=== PATIENT | female | born 1965 | race Caucasian/White ===

== ENCOUNTER → 2016-06-21 | Outpatient (CLI) | payer BC ==
[~2016-06-21] MED LIST: ASPCH81X PO; ENOX80IN SQ; FERR1TAB23 PO; FERR50TA3 PO; MEDR5TAB PO; RIVA1TAB4 PO; WARF5TAB90 PO
[2016-06-21 19:28] LABS: HEMATOCRIT 24.5 % (37-47); MEAN CORPUSCULAR HEMOGLOBIN 24.8 pg (25-34); MEAN CORPUSCULAR HGB CONC 31.4 g/dl (32-36); MEAN PLATELET VOLUME 9.5 fL (7.4-10.4); PLATELET COUNT 333 K/uL (130-400); WHITE BLOOD COUNT 7.95 K/uL (4.8-10.8)
== END | disposition home or self-care (01) ==
LOC: C.LAB 19:08
PROVIDERS: ATTEND Internal Medicine Geriatric Medicine
DX: N92.0 Excessive and frequent menstruation with regular cycle (principal)

== ENCOUNTER 2016-06-22 12:14 | Emergency (ER) | payer BC ==
[~2016-06-22] VITALS: Ht 165.1 cm; Wt 76.0 kg
[2016-06-22 12:17] VITALS: TEMP 37; Ht 165.1 cm; Wt 76.0 kg
[2016-06-22 13:16] LABS: BASO % 0.9 %; EOS % 0.5 %; IG% 0.3 %; LYMPH % 18.8 %; LYMPH ABS # 2.06 K/uL (1.2-3.4); MEAN CELL VOLUME 77.9 fL (80-100); MEAN CORPUSCULAR HEMOGLOBIN 24.6 pg (25-34); MEAN CORPUSCULAR HGB CONC 31.6 g/dl (32-36); MEAN PLATELET VOLUME 9.9 fL (7.4-10.4); MONO % 4.8 %; NEUT % 74.7 %; PLATELET COUNT 402 K/uL (130-400); RED BLOOD COUNT 3.21 M/uL (4.2-5.4); WHITE BLOOD COUNT 10.96 K/uL (4.8-10.8)
[2016-06-22 13:23] LABS: BUN/CREATININE RATIO 13.2 (10-20); CALCIUM 8.5 mg/dl (8.5-10.1); CREATININE 0.69 mg/dl (0.60-1.20); POTASSIUM 3.5 mmol/L (3.5-5.1)
[2016-06-22 13:25] LABS: ALB/GLOB RATIO 1.1 (0.9-2)
[2016-06-22 13:33] LABS: INR 1.1 (0.9-1.1); PROTHROMBIN TIME (PATIENT) 12.2 SECONDS (9.0-12.0)
[2016-06-22 13:36] LABS: MANUAL MICROSCOPIC REQUIRED? YES; URINE APPEARANCE CLOUDY (CLEAR); URINE BILIRUBIN NEG (NEG); URINE COLOR RED; URINE NITRITE NEG (NEG); URINE SPECIFIC GRAVITY 1.025 (1.000-1.030); UROBILINOGEN NEG (NEG)
[2016-06-22 13:37] LABS: REVIEW REQ? NO
[2016-06-22 13:39] LABS: COMPLETE YES; MICROCYTOSIS PRESENT
[2016-06-22 13:40] LABS: PREG INTERNAL NEGATIVE QC NEG CLEAR BACKGROUND; PREG INTERNAL POSITIVE QC POS CONTROL LINE
[2016-06-22 13:46] LABS: URINE RBC >30 /hpf (0-4)
[2016-06-22 13:47] LABS: URINE BACTERIA NEG (NEG); URINE MUCUS PRESENT (NONE PRSENT)
[2016-06-22 13:48] LABS: ZZUR CULT IF INDIC CLEAN CATCH YES
[2016-06-22] MEDS ORDERED: RIVA1TAB4 PO (14:53)
[2016-06-22] MEDS ORDERED: FERR50TA3 PO (14:53)
[2016-06-22] MEDS ORDERED: ENOX80IN SQ (15:49)
[2016-06-22] MEDS ORDERED: WARF5TAB90 PO (15:49)
--- NOTE | 2016-06-22 16:03 | GYNECOLOGICAL CONSULTATION ---
DATE OF CONSULTATION: 06/22/2016 DATE OF CONSULTATION: 06/22/2016. REQUESTING PROVIDER: [facility]. INDICATION: Vaginal bleeding on anticoagulation. HISTORY OF PRESENT ILLNESS: The patient is a 50-year-old 2, para 2, currently bleeding who presents to the Emergency Room for evaluation of vaginal bleeding. The patient has a complicated past gynecological and medical history. The patient relates a history of menorrhagia for several years with anemia. The patient states that she had a low hemoglobin, which was treated with p.o. iron. A culinary internship in the [place] area took the patient to the operating room in February timeframe and did a D\T\C. The patient states that she had polyps removed. After her D\T\C she states her bleeding had improved and she was able to get her hemoglobin up to 11. The patient the unfortunately had an ankle fracture which needed to be surgically repaired. Postoperatively she developed a DVT. The patient was then anticoagulated starting with an injection of Lovenox and then was seen as an outpatient yesterday in Dr. Olguin's office and was started on p.o. Xarelto. With the p.o. Xarelto she began to bleed heavily. Last night in Dr. Olguin's office she had a hemoglobin of 7.7. The patient states that she was seen this morning in her culinary internship's office in [place] who told that there was nothing she could do. The patient then presented to the Emergency Room here at [facility] for evaluation. Interestingly, the patient states that she had some type of DVT during her 20 years ago and was anticoagulated at that time. The patient states that she had some kind of hypercoagulable workup at the time of her and that the workup was negative. She does not believe that was ever repeated. PAST MEDICAL HISTORY: OBSTETRICAL: x2. 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 PHYSICAL EXAMINATION: GENERAL: Today shows a pleasant female in no acute distress. VITAL SIGNS: Her blood pressure 125/65 and a pulse of 94. ABDOMEN: Soft, nontender with no palpable masses. No rebound, no guarding, no organomegaly. Positive bowel sounds. PELVIC EXAMINATION: Shows normal external genitalia. Vaginal vault is pink and rugated. There is minimal bleeding in the posterior fornix. The cervix is multiparous and closed. Bimanual examination shows a 12-week size globular uterus. The adnexa show no palpable masses. RECTAL EXAMINATION: Confirmatory. EXTREMITY EXAMINATION: Shows a surgically healing left ankle fracture. LABORATORY DATA: Laboratory values show an H\T\H of 7.9 and 25.0. IMPRESSION: A 50-year-old 2, para 2 anticoagulated for DVT, history of menorrhagia with acute bleeding and anemia. PLAN: The patient is not actively bleeding now. She states that her bleeding becomes heavier when she takes the p.o. Xarelto. Clearly the p.o. Xarelto is exacerbating her underlying history of menorrhagia. I suspect the patient is tolerant of her anemia because she has been battling this prior to the anticoagulation. The patient is not a good surgical candidate at this time with the anticoagulation. Our hormone of choice to stop the bleeding acutely would be IV Premarin, but considering her DVT history I believe that is contraindicated. I do believe that the patient's bleeding could be controlled initially with a titrating dose of oral progesterone. This could be done over a 3-week period and would pretty much stop her bleeding. After completing that 3-week trial the patient could then have a Mirena IUD placed at least temporarily until her anticoagulation is completed. At this time, I would hope that the patient could come off the Xarelto and be transitioned to Coumadin where her PT and INR could be followed and her Coumadin dose could then be adjusted. I have discussed with Mr. Scott these recommendations. The BOWLING TEACHER followup can be done as an outpatient. As far as transitioning her anticoagulation from Xarelto to another anticoagulant, I will leave it up to him and the patient's PCP to decide the best way for that to occur. Should the patient need to be admitted for this anticoagulation change we will continue to follow along as an inpatient, otherwise the patient will follow up in my office for an IUD placement in 3 weeks.
[2016-06-22 16:21] VITALS: BP 115/68; PULSE 77; O2SAT 98
--- NOTE | 2016-06-22 21:13 | EMERGENCY ROOM VISIT NOTE ---
History First contact with patient: 13:49 Chief Complaint: ED VAG BLEEDING Stated Complaint: EXCESSIVE BLEEDING History of Present Illness The patient is a 50 year old female who presents to the Emergency Room with complaints of heavy vaginal bleeding since starting Xarelto on 06/14/16 because of a left lower extremity DVT. The patient reports undergoing same foot surgery on 05/28/16. The patient also reports that she has had uterine problems as well with prior history of polyps. Her last D&C was performed in February. The patient reports that her previous bleeding has significantly decreased. The patient reports that her heaviest bleeding is approximately one half hour after taking her Xarelto. The patient reports that the bleeding tapers down throughout the day until she takes the pill again 12 hours later, and goes through this continuous cycle. She reports that the bleeding is affecting her activities of daily living. She was seen yesterday by her family doctor who ordered some lab work, showing a hemoglobin of 7.7. She called her [employer] DEVELOPER in [place], and they told her that they would not do any type of surgical intervention with a hemoglobin level. It was suggested that he seek further emergency department evaluation for possible admission and blood transfusions. The patient denies any pain. She also denies any chest pain, shortness of breath, palpitations, headache, nausea or vomiting. She denies any significant pelvic pain. The patient denies any prior history of blood transfusions. She has been on Lovenox in the past. Review of Systems HEENT: Denies dizziness, visual problems, hearing loss, tinnitus. Denies difficulty swallowing or oral lesions. PULMONARY: Denies cough, shortness of breath, sputum production or hemoptysis. CARDIOVASCULAR: Denies chest pain, palpitations, dyspnea on exertion, orthopnea or peripheral edema. GASTROINTESTINAL: Denies diarrhea, constipation, nausea, vomiting, or abdominal pain. GENITOURINARY: Denies dysuria, frequency, urgency or nocturia. NEUROLOGIC: Denies history of epilepsy, CVA, TIA or chronic headaches. MUSCULOSKELETAL: Denies history of joint tenderness/swelling. SKIN: Denies rashes or lesions. PSYCHIATRIC: Denies history of depression or mental illness. ENDOCRINE: Denies history of diabetes or thyroid disorders. Past Medical/Surgical History Medical Problems: (1) Deep vein thrombosis (DVT) of left lower extremity Surgical Problems: (1) History of appendectomy (2) History of dilation and curettage (3) S/P foot surgery, left Family History FH: cancer FH: diabetes mellitus FH: gallbladder disease FH: heart disease FH: kidney disease Social History Smoking Status: Never Smoker Alcohol Use: occasionally Marital Status: Occupation Status: employed Current/Historical Medications Scheduled Enoxaparin (Lovenox), 76 MG SQ Q12H Ferrous Sulfate (Iron (Ferrous Sulfate)), 65 MG PO DAILY Rivaroxaban (Xarelto), 15 MG PO BID Warfarin Sodium (Coumadin), 5 MG PO DAILY Allergies Coded Allergies: Latex1 -Allergic Contact Dermititis (Unverified Allergy, Unknown, IRRITATION, , 06/22/16) Prochlorperazine (Unverified Allergy, Unknown, GOOFY, 20 YEARS AGO , ) Physical Exam Vital Signs Date Time Temp Pulse Resp B/P Pulse Ox O2 Delivery O2 Flow Rate FiO2 06/22/16 16:21 77 18 115/68 98 Room Air 06/22/16 14:40 94 17 117/70 99 Room Air 06/22/16 12:55 100 Room Air 06/22/16 12:17 37.0 94 18 125/65 100 Room Air Physical Exam CONSTITUTIONAL: Healthy and well nourished. Alert and oriented X 3 with positive affect. Patient does not appear in any acute distress. HEENT: Normocephalic, atraumatic. Pupils equal, round and reactive. NECK: Full active range of motion without discomfort. RESPIRATORY: Clear to auscultation bilaterally with no wheezing, crackles, rhonchi or stridor. CARDIOVASCULAR: Regular rate and rhythm with no murmurs, rubs or gallops. GASTROINTESTINAL: Bowel sounds present in all quadrants. Abdomen is soft and nontender to palpation. GENITOURINARY: Pelvic exam was performed with a female nurse high risk ob present. Normal external genitalia. Speculum exam shows dark blood within the vaginal vault. This was removed with 3 cotton swabs. The patient does have mild oozing from the cervical os. No other soft tissue noted within the cervical os. MUSCULOSKELETAL: Full range of motion of all joints without discomfort. INTEGUMENTARY: No rash or other significant dermatologic conditions noted. NEUROLOGIC: No focal neurologic deficits noted. Medical Decision & Procedures Laboratory Results 06/22/16 12:51 Red Blood Count 3.21, Mean Corpuscular Volume 77.9, Mean Corpuscular Hemoglobin 24.6, Mean Corpuscular Hemoglobin Concent 31.6, Mean Platelet Volume 9.9, Neutrophils (%) (Auto) 74.7, Lymphocytes (%) (Auto) 18.8, Monocytes (%) (Auto) 4.8, Eosinophils (%) (Auto) 0.5, Basophils (%) (Auto) 0.9, Neutrophils # (Auto) 8.18, Lymphocytes # (Auto) 2.06, Monocytes # (Auto) 0.53, Eosinophils # (Auto) 0.06, Basophils # (Auto) 0.10 06/22/16 12:51 Test 06/22/16 00:00 06/22/16 12:51 Urine Color RED Urine Appearance CLOUDY (CLEAR) Urine pH 6.0 (4.5-7.5) Urine Specific [place] 1.025 (1.000-1.030) Urine Protein 2+ (NEG) Urine Glucose (UA) NEG (NEG) Urine Ketones TRACE (NEG) Urine Occult Blood 3+ (NEG) Urine Nitrite NEG (NEG) Urine Bilirubin NEG (NEG) Urine Urobilinogen NEG (NEG) Urine Leukocyte Esterase NEG (NEG) Urine RBC >30 /hpf (0-4) Urine WBC 10-30 /hpf (0-5) Urine Epithelial Cells 10-20 /lpf (0-5) Urine Bacteria NEG (NEG) Urine Mucus PRESENT (NONE PRSENT) Urine Test NEG (NEG) White Blood Count 10.96 K/uL (4.8-10.8) Red Blood Count 3.21 M/uL (4.2-5.4) Hemoglobin 7.9 g/dL (12.0-16.0) Hematocrit 25.0 % (37-47) Mean Corpuscular Volume 77.9 fL (80-100) Mean Corpuscular Hemoglobin 24.6 pg (25-34) Mean Corpuscular Hemoglobin Concent 31.6 g/dl (32-36) Platelet Count 402 K/uL (130-400) Mean Platelet Volume 9.9 fL (7.4-10.4) Neutrophils (%) (Auto) 74.7 % Lymphocytes (%) (Auto) 18.8 % Monocytes (%) (Auto) 4.8 % Eosinophils (%) (Auto) 0.5 % Basophils (%) (Auto) 0.9 % Neutrophils # (Auto) 8.18 K/uL (1.4-6.5) Lymphocytes # (Auto) 2.06 K/uL (1.2-3.4) Monocytes # (Auto) 0.53 K/uL (0.11-0.59) Eosinophils # (Auto) 0.06 K/uL (0-0.5) Basophils # (Auto) 0.10 K/uL (0-0.2) RDW Standard Deviation 47.1 fL (36.4-46.3) RDW Coefficient of Variation 17.6 % (11.5-14.5) Immature Granulocyte % (Auto) 0.3 % Immature Granulocyte # (Auto) 0.03 K/uL (0.00-0.02) Microcytosis PRESENT Prothrombin Time 12.2 SECONDS (9.0-12.0) Prothromb Time International Ratio 1.1 (0.9-1.1) Activated Partial Thromboplast Time 26.5 SECONDS (21.0-31.0) Partial Thromboplastin Ratio 1.0 Anion Gap 10.0 mmol/L (3-11) Est Creatinine Clear Calc Drug Dose 101.7 ml/min Estimated GFR () 119.3 Estimated GFR (Non- 102.9 BUN/Creatinine Ratio 13.2 (10-20) Calcium Level 8.5 mg/dl (8.5-10.1) Total Bilirubin 0.2 mg/dl (0.2-1) Aspartate Amino Transf (AST/SGOT) 14 U/L (15-37) Alanine Aminotransferase (ALT/SGPT) 19 U/L (12-78) Alkaline Phosphatase 79 U/L (45-117) Total Protein 7.2 gm/dl (6.4-8.2) Albumin 3.7 gm/dl (3.4-5.0) Globulin 3.5 gm/dl (2.5-4.0) Albumin/Globulin Ratio 1.1 (0.9-2) The above labs were reviewed. Hemoglobin is 7.9 with hematocrit of 25. White count is mildly elevated at 10.96. Platelets are 402,000. Electrolytes are otherwise normal. LFTs are normal. ED Course Patient history and physical exam were performed. Nurse's notes were reviewed. Vital signs were reviewed and were normal. I also reviewed laboratory studies from yesterday, showing a hemoglobin of 7.7 and hematocrit of 24.5, respectively. IV access was established, and labs were drawn. The patient refused any analgesics. Review of labs shows a hemoglobin and hematocrit of 7.9 and 25, respectively. Remaining labs, including electrolytes, LFTs and coagulation studies were grossly normal. At this point, I discussed the case with Dr. Ybarra, [facility] hospitalist. At this point, he recommended that I speak with [employer] DEVELOPER regarding further suggestions of surgical versus nonsurgical treatment. Because the patient's [employer] SOFTWARE DEVELOPER is in [place], he also suggested that the patient may want to go back to [place] for further management. I discussed the case further with the patient and family, and they requested that care be provided here at [facility]. They also report that their [employer] SOFTWARE DEVELOPER in [place] did not want to treat her with progesterone, nor was she a surgical candidate given her current Xarelto use and hemoglobin level. At this point, the case was then discussed with Dr. Vivas, who came to the emergency department for further evaluation. He is suggesting that patient can be treated with a 3 week taper of progesterone, then insertion of an IUD. However , he does feel that the patient needs to be changed from Xarelto to another blood thinner for further treatment of her DVT. At this point, I then discussed the case with Emma Shea PA-C with Dr. Olguin's office. She felt comfortable with outpatient management as the patient has used Lovenox injections in the past. The patient will be provided prescriptions for Coumadin 5 mg every morning, and Lovenox injections every 12 hours. Her family doctor's office will call her to schedule further outpatient labs and Coumadin management. She will also follow-up with Dr. Vivas in 3 weeks. She was instructed to return to the emergency department for any progressively worsening bleeding or other concerning symptoms. The patient was happy with plan of care, and voiced understanding of all discharge instructions. Medical Decision Patient presents with primary complaint of heavy vaginal bleeding secondary to Xarelto use. Her hemoglobin is currently 7.9. At the current time, [employer] DEVELOPER and the hospitalist service does not feel that the patient warrants transfusion at this time. I agree that this will have to be watched closely in outpatient setting. She will stop the Xarelto and will be bridged to Coumadin treatment with Lovenox bridging. Impression Primary Impression: Abnormal vaginal bleeding Additional Impressions: Deep vein thrombosis (DVT) of left lower extremity Anemia due to blood loss, acute Departure Information Prescriptions Warfarin Sodium (COUMADIN) 5 Mg Tab 5 MG PO DAILY, #5 TAB Prov: Vic Scott PA 06/22/16 Enoxaparin (Lovenox) 80 Mg/0.8 Ml Inj 76 MG SQ Q12H, #10 SYR Prov: Vic Scott PA 06/22/16 Referrals Emma SheaPBrentABrent (PCP) Patient Instructions My [facility] Problem Qualifiers Additional Impressions: Deep vein thrombosis (DVT) of left lower extremity Affected thrombotic vein of extremity: unspecified vein of extremity Chronicity: acute Qualified Codes: I82.402 - Acute embolism and thrombosis of unspecified deep veins of left lower extremity
[2016-06-23] MEDS ORDERED: ENOX80IN SQ (11:30)
[2016-06-23] MEDS ORDERED: MEDR5TAB PO (11:31)
[2016-09-16] MEDS ORDERED: WARF5TAB90 PO (10:23)
[2017-01-04] MEDS ORDERED: ASPCH81X PO (13:55)
[2017-01-04] MEDS ORDERED: FERR1TAB23 PO (13:55)
== END 2016-06-22 16:22 | disposition home or self-care (01) ==
LOC: C.EDB 12:15 → C.EDA 16:22
DX: N93.9 Abnormal uterine and vaginal bleeding, unspecified (principal); I82.402 Acute embolism and thrombosis of unspecified deep veins of left lower extremity; D62 Acute posthemorrhagic anemia; Z79.01 Long term (current) use of anticoagulants; Z79.899 Other long term (current) drug therapy

== ENCOUNTER 2016-06-23 10:54 | Observation (INO) | payer BC ==
[~2016-06-23] VITALS: Ht 165.1 cm; Wt 74.0 kg
[2016-06-23] VITALS (12 sets, daily range): BP systolic 95–126; BP diastolic 57–75; PULSE 72–92; TEMP 36.7–37.1; O2SAT 96–98; Ht 165.1 cm; Wt 74.0 kg
[~2016-06-23 10:54] MED LIST changes: -ASPCH81X PO; -FERR1TAB23 PO; -MEDR5TAB PO
[2016-06-23] MEDS ORDERED: ENOX80IN SQ (11:30)
[2016-06-23] MEDS ORDERED: MEDR5TAB PO (11:31)
[2016-06-23] MEDS ORDERED: SODIUM CHLORIDE 0.9% 1000ML 1,000 ML IV STA (12:33)
[2016-06-23] MEDS ORDERED: SODIUM CHLORIDE 0.9% 1000ML 1,000 ML IV ONE (12:33)
[2016-06-23 12:36] LABS: BASO % 0.9 %; BASO ABS # 0.08 K/uL (0-0.2); EOS % 0.7 %; IG% 0.1 %; LYMPH % 22.2 %; LYMPH ABS # 2.03 K/uL (1.2-3.4); MEAN CORPUSCULAR HEMOGLOBIN 24.7 pg (25-34); MEAN CORPUSCULAR HGB CONC 31.3 g/dl (32-36); MEAN PLATELET VOLUME 10.1 fL (7.4-10.4); NEUT % 70.1 %; PLATELET COUNT 385 K/uL (130-400); RED BLOOD COUNT 2.91 M/uL (4.2-5.4); WHITE BLOOD COUNT 9.14 K/uL (4.8-10.8)
[2016-06-23 12:54] LABS: BUN/CREATININE RATIO 13.3 (10-20); CALCIUM 8.9 mg/dl (8.5-10.1); CREATININE 0.59 mg/dl (0.60-1.20); POTASSIUM 3.7 mmol/L (3.5-5.1)
[2016-06-23 12:57] LABS: INR 1.1 (0.9-1.1); PARTIAL THROMBOPLASTIN RATIO 0.9; PROTHROMBIN TIME (PATIENT) 11.3 SECONDS (9.0-12.0)
[2016-06-23 13:11] LABS: ANISOCYTOSIS PRESENT; COMPLETE YES
[2016-06-23] MEDS ORDERED: ACETAMINOPHEN 325 MG TAB PO PRN (14:15)
[2016-06-23] MEDS ORDERED: IV FLUIDS COMPLETED PRN (15:00)
[2016-06-23] MEDS ORDERED: NURSING VERBAL MED ORDER ONE (16:45)
[2016-06-23] MEDS ORDERED: HYDROCODONE/ACETAMOPHEN 5/325MG TAB PO ONE (17:00)
[2016-06-23] MEDS ORDERED: WARFARIN SOD 5 MG TAB PO SCH (17:00)
--- NOTE | 2016-06-23 17:54 | Progress Note ---
Progress Note Date of Service Jun 23, 2016. Progress Note Discussed blood transfusion with patient; she is agreeable. Reviewed RBA, informed consent obtained. 2u PRBC ordered for transfusion.
[2016-06-23] MEDS: ENOXAPARIN 80 MG/0.8 ML SYR SQ SCH (18:28)
[2016-06-23] MEDS: MEDROXYPROGESTERONE 5 MG PO SCH (18:48)
[2016-06-23] MEDS ORDERED: ENOXAPARIN 80 MG/0.8 ML SYR SQ SCH (21:00)
[2016-06-23] MEDS ORDERED: HYDROCODONE/ACETAMOPHEN 5/325MG TAB PO PRN (21:30)
--- NOTE | 2016-06-23 21:59 | Medical Consult ---
Consultation Date of Consultation: Jun 23, 2016. Attending Physician: Caroline Pastrana D.O. Reason for Consultation: Acute anemia, blood loss. History of Present Illness Patient is a 50yo who presents to the ER after an episode of syncope this morning. I was asked to see the patient for winch driver consultation by Dr Dang due to patient's h/o vaginal bleeding and hgb of 7.2. Patient had left ankle surgery 4 weeks ago, and subsequently developed DVT and was anticoagulated with Lovenox and 2 days ago switched to Xarelto. She developed heavy vaginal bleeding on Xarelto, had hgb 7.7 and was referred to the ER yesterday. During that visit, Dr Vivas performed WASTE PICKER consultation and started patient on provera taper. Her Xarelto was stopped, and hematology started her on coumadin with a lovenox bridge. She was feeling ok and discharged to home. Then, this morning, she felt very dizzy in the bathroom and felt like she was going to pass out. She notes that her vaginal bleeding is now scant, after starting the provera. However, she continues to feel symptomatic, noting tiredness, weakness, dizziness, headache. Denies fever/chills/nausea/vomiting. No bowel changes. 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 Had D&C in Feb 2016 by her director supply chain in [place], had endometrial polyps removed. Past Medical/Surgical History Medical Problems: (1) Abnormal vaginal bleeding Status: Acute (2) Deep vein thrombosis (DVT) of left lower extremity Status: Acute Family History FH: cancer FH: diabetes mellitus FH: gallbladder disease FH: heart disease FH: kidney disease noncontributory Social History Smoking Status: Never Smoker Marital Status: Occupation Status: employed Allergies Coded Allergies: Prochlorperazine (Verified Adverse Reaction, Intermediate, GOOFY, 20 YEARS AGO , 06/23/16) Latex1 -Allergic Contact Dermititis (Verified Adverse Reaction, Mild, IRRITATION, , 06/23/16) Current Inpatient Medications Current Inpatient Medications Medications (Trade) Dose Ordered Sig/Lenny Route Start Time Stop Time Status Last Admin Dose Admin Warfarin Sodium (Coumadin Tab) 5 mg DAILY@1600 PO 06/23/16 17:00 07/23/16 16:59 06/23/16 17:15 5 MG Acetaminophen (Tylenol Tab) 650 mg Q4H PRN PO 3/1/17 14:15 07/23/16 14:14 06/23/16 15:25 650 MG Miscellaneous (Iv Fluids Completed) 1 ea PRN PRN N/A 06/23/16 15:00 06/23/17 14:59 Non-Formulary Medication (Non-Formulary Patient'S Own Med) 1 ea UD PO 06/23/16 17:15 07/23/16 17:14 06/23/16 18:48 1 EA Enoxaparin Sodium (Lovenox Inj) 80 mg Q12H SQ 06/23/16 18:00 07/23/16 17:59 06/23/16 18:28 80 MG Acetaminophen/ Hydrocodone Bitart ([place] 5/325 Tab) 1 tab Q4 PRN PO 06/23/16 21:30 07/07/16 21:29 UNV Review of Systems Constitutional: + fatigue, + weakness Eyes: No problem reported ENT: No problem reported Respiratory: No problem reported Cardiovascular: No problem reported Abdomen: No problem reported Musculoskeletal: + problem reported (recent left ankle surgery) Genitourinary - Female: + menorrhagia Neurologic: + weakness Psychiatric: No problem reported Endocrine: No problem reported Hematologic / Lymphatic: + clotting problems Integumentary: No problem reported Allergic / Immunologic: No problem reported Physical Exam Date Time Temp Pulse Resp B/P Pulse Ox O2 Delivery O2 Flow Rate FiO2 06/23/16 20:07 37.0 79 18 95/57 96 0.0 06/23/16 17:39 37.0 92 18 126/75 98 06/23/16 16:35 98 Room Air 06/23/16 16:35 37.1 80 16 112/72 98 Room Air 06/23/16 16:25 77 18 117/68 98 06/23/16 15:59 77 18 117/68 98 Room Air 06/23/16 15:58 Room Air 06/23/16 14:09 88 20 113/64 97 Room Air 06/23/16 12:46 79 18 103/64 99 Room Air 06/23/16 11:03 37.1 106 18 115/71 97 Room Air General Appearance: WD/WN (pale) Head: normocephalic, atraumatic Eyes: normal inspection Neck: supple, no adenopathy Respiratory/Chest: lungs clear, normal breath sounds Cardiovascular: regular rate, rhythm Abdomen/GI: non tender, soft Back: normal inspection Extremities/Musculoskelatal: + pertinent finding (left leg in boot) Neurologic/Psych: alert (awake and alert, but fatigued), oriented x 3 Skin: warm/dry, + pallor Laboratory Results Last 24 Hours Test 06/23/16 11:25 White Blood Count 9.14 K/uL Red Blood Count 2.91 M/uL Hemoglobin 7.2 g/dL Hematocrit 23.0 % Mean Corpuscular Volume 79.0 fL Mean Corpuscular Hemoglobin 24.7 pg Mean Corpuscular Hemoglobin Concent 31.3 g/dl Platelet Count 385 K/uL Mean Platelet Volume 10.1 fL Neutrophils (%) (Auto) 70.1 % Lymphocytes (%) (Auto) 22.2 % Monocytes (%) (Auto) 6.0 % Eosinophils (%) (Auto) 0.7 % Basophils (%) (Auto) 0.9 % Neutrophils # (Auto) 6.41 K/uL Lymphocytes # (Auto) 2.03 K/uL Monocytes # (Auto) 0.55 K/uL Eosinophils # (Auto) 0.06 K/uL Basophils # (Auto) 0.08 K/uL RDW Standard Deviation 50.4 fL RDW Coefficient of Variation 18.6 % Immature Granulocyte % (Auto) 0.1 % Immature Granulocyte # (Auto) 0.01 K/uL Anisocytosis PRESENT Prothrombin Time 11.3 SECONDS Prothromb Time International Ratio 1.1 Activated Partial Thromboplast Time 23.3 SECONDS Partial Thromboplastin Ratio 0.9 Sodium Level 143 mmol/L Potassium Level 3.7 mmol/L Chloride Level 109 mmol/L Carbon Dioxide Level 24 mmol/L Anion Gap 10.0 mmol/L Blood Urea Nitrogen 8 mg/dl Creatinine 0.59 mg/dl Est Creatinine Clear Calc Drug Dose 117.4 ml/min Estimated GFR () 125.6 Estimated GFR (Non- 108.4 BUN/Creatinine Ratio 13.3 Random Glucose 98 mg/dl Calcium Level 8.9 mg/dl Total Bilirubin 0.2 mg/dl Aspartate Amino Transf (AST/SGOT) 14 U/L Alanine Aminotransferase (ALT/SGPT) 19 U/L Alkaline Phosphatase 72 U/L Total Protein 7.2 gm/dl Albumin 3.6 gm/dl Globulin 3.6 gm/dl Albumin/Globulin Ratio 1.0 Assessment & Plan A: Symptomatic anemia due to acute blood loss P: Will admit for observation and blood transfusion.
--- NOTE | 2016-06-23 22:07 | History and Physical ---
History & Physical Date & Time of Service: Jun 23, 2016 at 22:00 Chief Complaint: Syncope Primary Care Physician: Emma Shea P.A. History of Present Illness Patient is a 50yo who presented to the ER after an episode of syncope this morning. Events leading up to syncope are as follows: Patient had left ankle surgery 4 weeks ago, and subsequently developed DVT and was anticoagulated with Lovenox and 2 days ago switched to Xarelto. She developed heavy vaginal bleeding on Xarelto, had hgb 7.7 and was referred to the ER yesterday. During that visit, Dr Vivas performed DIRECTOR WATER AND WASTE SERVICES consultation and started patient on provera taper. Her Xarelto was stopped, and hematology started her on coumadin with a lovenox bridge. She was feeling ok and discharged to home. Then, this morning, she felt very dizzy in the bathroom and felt like she was going to pass out. She notes that her vaginal bleeding is now scant, after starting the provera. However, she continues to feel symptomatic, noting tiredness, weakness, dizziness, headache. Denies fever/chills/nausea/vomiting. No bowel changes. 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 Had D&C in Feb 2016 by her hearing instrument specialist in [place], had endometrial polyps removed. Patient notes she had a blood clot during , and states that workup for clotting disorders was normal at the time. Family History FH: cancer FH: diabetes mellitus FH: gallbladder disease FH: heart disease FH: kidney disease noncontributory Social History Smoking Status: Never Smoker Marital Status: Occupational Status: employed Allergies Coded Allergies: Prochlorperazine (Verified Adverse Reaction, Intermediate, GOOFY, 20 YEARS AGO , 06/23/16) Latex1 -Allergic Contact Dermititis (Verified Adverse Reaction, Mild, IRRITATION, , 06/23/16) Home Medications Scheduled Enoxaparin (Lovenox), 80 MG SQ Q12H Ferrous Sulfate (Iron (Ferrous Sulfate)), 65 MG PO DAILY Medroxyprogesterone (Provera), 5 MG PO UD Warfarin Sodium (Coumadin), 5 MG PO DAILY Review of Systems Constitutional: + fatigue, + weakness Eyes: No problem reported ENT: No problem reported Respiratory: No problem reported Cardiovascular: No problem reported Abdomen: No problem reported Musculoskeletal: No problem reported Genitourinary - Female: + menorrhagia Neurologic: + weakness Psychiatric: No problem reported Endocrine: No problem reported Hematologic / Lymphatic: No problem reported Integumentary: No problem reported Allergic / Immunologic: No problem reported Physical Exam Vital Signs Date Time Temp Pulse Resp B/P Pulse Ox O2 Delivery O2 Flow Rate FiO2 06/23/16 20:07 37.0 79 18 95/57 96 0.0 06/23/16 17:39 37.0 92 18 126/75 98 06/23/16 16:35 98 Room Air 06/23/16 16:35 37.1 80 16 112/72 98 Room Air 06/23/16 16:25 77 18 117/68 98 06/23/16 15:59 77 18 117/68 98 Room Air 06/23/16 15:58 Room Air 06/23/16 14:09 88 20 113/64 97 Room Air 06/23/16 12:46 79 18 103/64 99 Room Air 06/23/16 11:03 37.1 106 18 115/71 97 Room Air General Appearance: WD/WN, no apparent distress Head: normocephalic, atraumatic Neck: supple Respiratory/Chest: lungs clear, normal breath sounds, no respiratory distress Cardiovascular: regular rate, rhythm Abdomen/GI: non tender, soft Back: normal inspection Extremities/Musculoskelatal: + pertinent finding (boot, left ankle) Neurologic/Psych: alert, normal mood/affect, oriented x 3 Skin: warm/dry, no rash, + pallor Lymphatic: no adenopathy Diagnostics Laboratory Results Results Past 24 Hours Test 06/23/16 11:25 Range/Units White Blood Count 9.14 4.8-10.8 K/uL Red Blood Count 2.91 4.2-5.4 M/uL Hemoglobin 7.2 12.0-16.0 g/dL Hematocrit 23.0 37-47 % Mean Corpuscular Volume 79.0 80-100 fL Mean Corpuscular Hemoglobin 24.7 25-34 pg Mean Corpuscular Hemoglobin Concent 31.3 32-36 g/dl Platelet Count 385 130-400 K/uL Mean Platelet Volume 10.1 7.4-10.4 fL Neutrophils (%) (Auto) 70.1 % Lymphocytes (%) (Auto) 22.2 % Monocytes (%) (Auto) 6.0 % Eosinophils (%) (Auto) 0.7 % Basophils (%) (Auto) 0.9 % Neutrophils # (Auto) 6.41 1.4-6.5 K/uL Lymphocytes # (Auto) 2.03 1.2-3.4 K/uL Monocytes # (Auto) 0.55 0.11-0.59 K/uL Eosinophils # (Auto) 0.06 0-0.5 K/uL Basophils # (Auto) 0.08 0-0.2 K/uL RDW Standard Deviation 50.4 36.4-46.3 fL RDW Coefficient of Variation 18.6 11.5-14.5 % Immature Granulocyte % (Auto) 0.1 % Immature Granulocyte # (Auto) 0.01 0.00-0.02 K/uL Anisocytosis PRESENT Prothrombin Time 11.3 9.0-12.0 SECONDS Prothromb Time International Ratio 1.1 0.9-1.1 Activated Partial Thromboplast Time 23.3 21.0-31.0 SECONDS Partial Thromboplastin Ratio 0.9 Sodium Level 143 136-145 mmol/L Potassium Level 3.7 3.5-5.1 mmol/L Chloride Level 109 98-107 mmol/L Carbon Dioxide Level 24 21-32 mmol/L Anion Gap 10.0 3-11 mmol/L Blood Urea Nitrogen 8 7-18 mg/dl Creatinine 0.59 0.60-1.20 mg/dl Est Creatinine Clear Calc Drug Dose 117.4 ml/min Estimated GFR () 125.6 Estimated GFR (Non- 108.4 BUN/Creatinine Ratio 13.3 10-20 Random Glucose 98 70-99 mg/dl Calcium Level 8.9 8.5-10.1 mg/dl Total Bilirubin 0.2 0.2-1 mg/dl Aspartate Amino Transf (AST/SGOT) 14 15-37 U/L Alanine Aminotransferase (ALT/SGPT) 19 12-78 U/L Alkaline Phosphatase 72 45-117 U/L Total Protein 7.2 6.4-8.2 gm/dl Albumin 3.6 3.4-5.0 gm/dl Globulin 3.6 2.5-4.0 gm/dl Albumin/Globulin Ratio 1.0 0.9-2 Impression Assessment and Plan A: Symptomatic anemia due to acute blood loss P: Will admit for observation and blood transfusion. Patient's vaginal bleeding is now scant after starting the provera taper. Recommend that she continue this PO provera taper. By the time the taper is completed, will likely continue to see improvement as she has now been switched off of Xarelto and started on coumadin with a lovenox bridge. Given patient's DVT diagnosis, do not recommend any hormonal manipulation with estrogen. Due to patient's symptoms - weakness, dizziness, near syncope, recommended to her that she have 2u PRBC transfused. Discussed risks/benefits/alternatives, and patient signed informed consent. 2u crossmatched PRBCs ordered for transfusion. Will observe symptoms overnight during administration of blood and recheck Hgb in the morning. Patient and her are agreeable to plan. Advanced Directives Existing Living Will: No Existing Power of Raw Stock Machine Loader: No VTE Prophylaxis VTE Risk Assessment Done? Y/N: Yes Risk Level: Moderate Given or contraindicated: Other Anticoagulation
[2016-06-24] MEDS: MEDROXYPROGESTERONE 5 MG PO SCH ×2 (00:51→06:14)
[2016-06-24 04:10] VITALS: BP 93/60; PULSE 73; TEMP 36.6; O2SAT 98
[2016-06-24] MEDS: ENOXAPARIN 80 MG/0.8 ML SYR SQ SCH (06:14)
[2016-06-24 08:05] VITALS: BP 114/70; PULSE 67; TEMP 36.9; O2SAT 99
[2016-06-24 08:34] LABS: HEMATOCRIT 29.7 % (37-47)
--- NOTE | 2016-06-24 08:49 | Progress Note ---
Progress Note Date of Service Jun 24, 2016. Progress Note Progress note Feeling much better. Ambulating, tolerating PO. Minimal vaginal bleeding. Last 24 Hours Test 06/23/16 11:25 06/24/16 08:25 White Blood Count 9.14 K/uL Red Blood Count 2.91 M/uL Hemoglobin 7.2 g/dL 9.6 g/dL Hematocrit 23.0 % 29.7 % Mean Corpuscular Volume 79.0 fL Mean Corpuscular Hemoglobin 24.7 pg Mean Corpuscular Hemoglobin Concent 31.3 g/dl Platelet Count 385 K/uL Mean Platelet Volume 10.1 fL Neutrophils (%) (Auto) 70.1 % Lymphocytes (%) (Auto) 22.2 % Monocytes (%) (Auto) 6.0 % Eosinophils (%) (Auto) 0.7 % Basophils (%) (Auto) 0.9 % Neutrophils # (Auto) 6.41 K/uL Lymphocytes # (Auto) 2.03 K/uL Monocytes # (Auto) 0.55 K/uL Eosinophils # (Auto) 0.06 K/uL Basophils # (Auto) 0.08 K/uL RDW Standard Deviation 50.4 fL RDW Coefficient of Variation 18.6 % Immature Granulocyte % (Auto) 0.1 % Immature Granulocyte # (Auto) 0.01 K/uL Anisocytosis PRESENT Prothrombin Time 11.3 SECONDS Prothromb Time International Ratio 1.1 Activated Partial Thromboplast Time 23.3 SECONDS Partial Thromboplastin Ratio 0.9 Sodium Level 143 mmol/L Potassium Level 3.7 mmol/L Chloride Level 109 mmol/L Carbon Dioxide Level 24 mmol/L Anion Gap 10.0 mmol/L Blood Urea Nitrogen 8 mg/dl Creatinine 0.59 mg/dl Est Creatinine Clear Calc Drug Dose 117.4 ml/min Estimated GFR () 125.6 Estimated GFR (Non- 108.4 BUN/Creatinine Ratio 13.3 Random Glucose 98 mg/dl Calcium Level 8.9 mg/dl Total Bilirubin 0.2 mg/dl Aspartate Amino Transf (AST/SGOT) 14 U/L Alanine Aminotransferase (ALT/SGPT) 19 U/L Alkaline Phosphatase 72 U/L Total Protein 7.2 gm/dl Albumin 3.6 gm/dl Globulin 3.6 gm/dl Albumin/Globulin Ratio 1.0 Vital Signs Past 12 Hours Date Time Temp Pulse Resp B/P Pulse Ox O2 Delivery O2 Flow Rate FiO2 06/24/16 04:10 36.6 73 18 93/60 98 Room Air 06/23/16 23:16 36.8 72 18 98/61 97 Room Air 06/23/16 23:16 97 Room Air 06/23/16 21:40 36.7 76 16 98/62 96 06/23/16 21:10 36.9 85 16 101/66 98 06/23/16 21:10 36.9 85 16 101/66 98 Gen: AAOx3 NAD CV RRR L CTAB Abd Soft NTTP ND Ext left boot A/P Symptomatic anemia of acute loss s/p 2u PRBC Doing much better. Will discharge to home. Continue provera taper for bleeding control. Continue lovenox bridge and coumadin for DVT treatment. Followup in office - Discussed with Elena Meeks RN - she will call patient today to set up IUD placement.
--- NOTE | 2016-06-24 08:52 | Discharge Instructions ---
Discharge Instructions Admission Reason for Admission: Syncope Discharge Discharge Diagnosis / Problem: symptomatic anemia Discharge Goals Goal(s): Continuing TECHNICAL MANAGER [employer]ANT care Activity Recommendations Activity Limitations: resume your previous activity . Instructions / Follow-Up Instructions / Follow-Up ACTIVITY RECOMMENDATIONS: Activity: * Normal activity Bathing: * Showers or baths are permissible. SPECIAL CARE INSTRUCTIONS: None Vaginal Discharge: * If bleeding becomes free flowing, notify our office at . Temperature: * Any fever above 100.4 degrees F should be reported to our office at . FOLLOW-UP: Appointments: Elena TECHNICAL MANAGER [employer]ANT nurse from office, will call you today to schedule IUD placement. WE WISH YOU A SPEEDY RECOVERY! Current Hospital Diet Patient's current hospital diet: Regular Diet Discharge Diet Recommended Diet: Regular Diet Pending Studies Studies pending at discharge: no Medical Emergencies . Who to Call and When: Medical Emergencies: If at any time you feel your situation is an emergency, please call 911 immediately. . Non-Emergent Contact Non-Emergency issues call your: Primary Care Provider, Design Analyst . . "Provider Documentation" section prepared by Caroline Pastrana. VTE Core Measure Inpt VTE Proph given/why not?: Other Anticoagulation
[2016-06-24 09:27] VITALS: BP 114/70; PULSE 67; TEMP 36.9; O2SAT 99
--- NOTE | 2016-06-24 23:36 | EMERGENCY ROOM VISIT NOTE ---
History Report prepared by Soo: Eryn Dougherty Under the Supervision of: Dr. Jarred Dang M.D. First contact with patient: 12:28 Chief Complaint: OTHER COMPLAINT Stated Complaint: BLOOD LOSS/BLOOD CLOT History of Present Illness The patient is a 50 year old female who presents to the Emergency Room with complaints of vaginal bleeding starting a few days ago and worsening last night. About 4 weeks ago, the patient had foot surgery and developed a blood clot. She was placed on blood thinners. She had a DNC in February 2016. Her vaginal bleeding had been reducing. After she was placed on blood thinners, her vaginal bleeding worsened. She had some heavy bleeding with clots last night. She was prescribed progesterone with some relief. She has gone through about 4 pads since yesterday. She also reports dizziness occurring this morning but denies loss of consciousness. She reports weakness, abdominal cramps, and back pain. She denies chest pain, or any other complaints. She feels that over the last couple hours since she came to the ER that her bleeding has gotten better. She feels okay at rest. Source of History: patient, spouse/significant other Onset: a few days ago Position: other (global) Quality: other (vaginal bleeding) Timing: other (improved) Modifying Factors (Relieving): other (progesterone with some relief) Associated Symptoms: + abdominal pain, + back pain, + weakness, No LOC, No chest pain Review of Systems See HPI for pertinent positives & negatives. A total of 10 systems reviewed and were otherwise negative. Past Medical & Surgical Medical Problems: (1) Deep vein thrombosis (DVT) of left lower extremity (2) Syncope Surgical Problems: (1) History of appendectomy (2) History of dilation and curettage (3) S/P foot surgery, left Old medical records were reviewed. Nurse's notes were reviewed and I agree with. Family History FH: cancer FH: diabetes mellitus FH: gallbladder disease FH: heart disease FH: kidney disease Social History Smoking Status: Former Smoker Alcohol Use: occasionally Marital Status: Occupation Status: employed Current/Historical Medications Scheduled Enoxaparin (Lovenox), 80 MG SQ Q12H Ferrous Sulfate (Iron (Ferrous Sulfate)), 65 MG PO DAILY Medroxyprogesterone (Provera), 5 MG PO UD Warfarin Sodium (Coumadin), 5 MG PO DAILY Allergies Coded Allergies: Prochlorperazine (Verified Adverse Reaction, Intermediate, GOOFY, 20 YEARS AGO , 06/23/16) Latex1 -Allergic Contact Dermititis (Verified Adverse Reaction, Mild, IRRITATION, , 06/23/16) Physical Exam Vital Signs Date Time Temp Pulse Resp B/P Pulse Ox O2 Delivery O2 Flow Rate FiO2 06/23/16 14:09 88 20 113/64 97 Room Air 06/23/16 12:46 79 18 103/64 99 Room Air 06/23/16 11:03 37.1 106 18 115/71 97 Room Air Physical Exam General: Mildly pale, middle aged female, in no acute distress. HEENT: Normal cephalic atraumatic. Pupils are equal round and reactive to light. Extraocular movements are intact. Oropharynx is pink with moist mucous membranes. No swelling of the mouth lips or tongue. Neck: Supple with a midline trachea. No meningeal signs or stiffness, no JVD or bruits. No Stridor. Chest: Clear to auscultation bilaterally. No wheezes or rhonchi. No increased work of breathing. Heart: regular rate and rhythm. Abdomen: Soft nontender, nondistended without rebound guarding or rigidity. Extremities: No cyanosis clubbing or edema. No calf tenderness or assymetry Spine/Back. Non tender to palpation. No CVA tenderness Skin: Good turgor without rashes. Neurologic exam: Cranial nerves two through 12 are intact. Motor and sensation are intact and symmetrical throughout. Medical Decision & Procedures Laboratory Results 06/23/16 11:25 Red Blood Count 2.91, Mean Corpuscular Volume 79.0, Mean Corpuscular Hemoglobin 24.7, Mean Corpuscular Hemoglobin Concent 31.3, Mean Platelet Volume 10.1, Neutrophils (%) (Auto) 70.1, Lymphocytes (%) (Auto) 22.2, Monocytes (%) (Auto) 6.0, Eosinophils (%) (Auto) 0.7, Basophils (%) (Auto) 0.9, Neutrophils # (Auto) 6.41, Lymphocytes # (Auto) 2.03, Monocytes # (Auto) 0.55, Eosinophils # (Auto) 0.06, Basophils # (Auto) 0.08 06/23/16 11:25 Test 06/23/16 11:25 White Blood Count 9.14 K/uL (4.8-10.8) Red Blood Count 2.91 M/uL (4.2-5.4) Hemoglobin 7.2 g/dL (12.0-16.0) Hematocrit 23.0 % (37-47) Mean Corpuscular Volume 79.0 fL (80-100) Mean Corpuscular Hemoglobin 24.7 pg (25-34) Mean Corpuscular Hemoglobin Concent 31.3 g/dl (32-36) Platelet Count 385 K/uL (130-400) Mean Platelet Volume 10.1 fL (7.4-10.4) Neutrophils (%) (Auto) 70.1 % Lymphocytes (%) (Auto) 22.2 % Monocytes (%) (Auto) 6.0 % Eosinophils (%) (Auto) 0.7 % Basophils (%) (Auto) 0.9 % Neutrophils # (Auto) 6.41 K/uL (1.4-6.5) Lymphocytes # (Auto) 2.03 K/uL (1.2-3.4) Monocytes # (Auto) 0.55 K/uL (0.11-0.59) Eosinophils # (Auto) 0.06 K/uL (0-0.5) Basophils # (Auto) 0.08 K/uL (0-0.2) RDW Standard Deviation 50.4 fL (36.4-46.3) RDW Coefficient of Variation 18.6 % (11.5-14.5) Immature Granulocyte % (Auto) 0.1 % Immature Granulocyte # (Auto) 0.01 K/uL (0.00-0.02) Anisocytosis PRESENT Prothrombin Time 11.3 SECONDS (9.0-12.0) Prothromb Time International Ratio 1.1 (0.9-1.1) Activated Partial Thromboplast Time 23.3 SECONDS (21.0-31.0) Partial Thromboplastin Ratio 0.9 Anion Gap 10.0 mmol/L (3-11) Est Creatinine Clear Calc Drug Dose 117.4 ml/min Estimated GFR () 125.6 Estimated GFR (Non- 108.4 BUN/Creatinine Ratio 13.3 (10-20) Calcium Level 8.9 mg/dl (8.5-10.1) Total Bilirubin 0.2 mg/dl (0.2-1) Aspartate Amino Transf (AST/SGOT) 14 U/L (15-37) Alanine Aminotransferase (ALT/SGPT) 19 U/L (12-78) Alkaline Phosphatase 72 U/L (45-117) Total Protein 7.2 gm/dl (6.4-8.2) Albumin 3.6 gm/dl (3.4-5.0) Globulin 3.6 gm/dl (2.5-4.0) Albumin/Globulin Ratio 1.0 (0.9-2) Laboratory studies as stated above per my review. Medications Administered Medications (Trade) Dose Ordered Sig/Lenny Route Start Time Stop Time Status Last Admin Dose Admin Sodium Chloride 1,000 ml @ 999 mls/hr Q1H1M STAT IV 06/23/16 12:33 06/23/16 13:33 DC 06/23/16 12:45 999 MLS/HR Sodium Chloride (Nss 1000ml) 1,000 ml @ 150 mls/hr Q6H40M ONCE IV 06/23/16 12:33 06/23/16 14:19 DC 06/23/16 13:28 150 MLS/HR Acetaminophen (Tylenol Tab) 650 mg Q4H PRN PO 06/23/16 14:15 06/24/16 10:38 DC 06/23/16 15:25 650 MG ECG Indication: other (Vaginal bleeding) Rate (beats per minute): 78 Rhythm: normal sinus Findings: no acute ischemic change, no ectopy Comparison ECG Date: no prior available ED Course 1228: Past medical records reviewed. The patient was evaluated in room C01B, and a complete history and physical examination were performed. 1233: Sodium Chloride 1000 ml @ 150 mls/hr IV, Sodium Chloride 1000 ml @ 999 mls /hr IV 1325: I reevaluated the patient. Her bleeding has improved but she feels weak. I discussed the results and treatment plan with the patient. She verbalized agreement of the treatment plan. The patient will be evaluated for further management. 1329: I discussed the patient's case with Dr. Machado, OB-WAREHOUSE MANAGER with [facility]. Medical Decision Differential diagnosis includes but is not limited to anemia, vaginal bleeding, anticoagulation use, electrolyte or metabolic abnormalities. This patient comes in as described above. She has had heavy vaginal bleeding and is on anticoagulants. She's seen yesterday for the same and continued to have some bleeding and was put on oral progesterone. It seems like this is finally starting to kick in however she did have this symptomatic anemia this morning when she fell and she was weak and may have passed out. She is actually feeling better. She's had no chest pain or shortness of breath. EKG was obtained and shows no ischemic changes .her anemia is down to 7.2, she's had no acute electrolyte or metabolic abnormality. She was typed and crossed. I did consult Dr. Machado from [employer] SUPER[employer]. I do think she needs to be admitted for transfusion and further monitoring. She was seen by Dr. Machado in the ER and will admit her for these measures. Consults Time Called: 1327 Consulting Physician: Dr. Machado, OB-WAREHOUSE MANAGER with [facility] Returned Call: 1321 I discussed the patient's case with Dr. Machado, OB-WAREHOUSE MANAGER with [facility]. Impression Primary Impression: Anemia Additional Impressions: Current use of alf anticoagulation Vaginal bleeding Scribe Attestation The scribe's documentation has been prepared under my direction and personally reviewed by me in its entirety. I confirm that the note above accurately reflects all work, treatment, procedures, and medical decision making performed by me. Departure Information Dispostion Other (Being evaluated by OB-WAREHOUSE MANAGER) Referrals No Doctor, Assigned (PCP) Patient Instructions My [facility] Problem Qualifiers
--- NOTE | 2016-07-08 23:12 | DISCHARGE SUMMARY ---
DIAGNOSIS ON ADMISSION: Symptomatic anemia due to acute blood loss. DISCHARGE DIAGNOSIS: Same. DESCRIPTION OF HOSPITAL STAY: The patient is a 50-year-old G2, P2 who presented to the Emergency Department after an episode of syncope this morning. The patient has a history of left ankle surgery 4 weeks ago, subsequently developed a DVT and was anticoagulated with Lovenox and 2 days ago switched Xarelto. She developed heavy vaginal bleeding on Xarelto and had a hemoglobin of 7.7 and was referred to the ER yesterday. During that visit, Dr. Vivas performed CNA consultation and started the patient on Provera taper. Her Xarelto was stopped and hematology started her on a Coumadin with a Lovenox bridge. She was feeling okay and was discharged to home yesterday and then on the morning of admission she felt very dizzy in the bathroom and felt like she was going to pass out. She notes that her vaginal bleeding is now scant after starting the Provera; however, she continues to feel symptomatic with description of tiredness, weakness, dizziness and headache. She was admitted for red blood cell transfusion due to symptomatic anemia of acute blood loss. She was admitted, she received 2 units packed red blood cells, hemoglobin after transfusion was 9.6. The patient felt much better after receiving 2 units of red blood cells. She was discharged to home on June 24. CONDITION ON DISCHARGE: Stable and good. MEDICATIONS: Home medications as needed. Anticoagulants per hematology. DIET: Regular. FOLLOWUP: In the office if vaginal bleeding persists and also as scheduled. ACTIVITY: As tolerated.
[2016-09-16] MEDS ORDERED: WARF5TAB90 PO (10:23)
[2017-01-04] MEDS ORDERED: ASPCH81X PO (13:55)
[2017-01-04] MEDS ORDERED: FERR1TAB23 PO (13:55)
== END 2016-06-24 10:00 | disposition home or self-care (01) ==
LOC: ENRESERVDT → ENRESERVTM → C.EDB 10:55 → C.MS4N 14:19
PROVIDERS: ADMIT Obstetrics & Gynecology; ATTEND Obstetrics & Gynecology
DX: D62 Acute posthemorrhagic anemia (principal); Z79.01 Long term (current) use of anticoagulants; N93.9 Abnormal uterine and vaginal bleeding, unspecified; Z83.3 Family history of diabetes mellitus; Z82.49 Family history of ischemic heart disease and other diseases of the circulatory system; Z86.718 Personal history of other venous thrombosis and embolism

== ENCOUNTER → 2016-06-25 | Outpatient (CLI) | payer BC ==
[~2016-06-25] MED LIST changes: +ASPCH81X PO; +FERR1TAB23 PO; +MEDR5TAB PO; -RIVA1TAB4 PO
[2016-06-25 12:28] LABS: HEMATOCRIT 29.8 % (37-47); MEAN CORPUSCULAR HEMOGLOBIN 26.1 pg (25-34); MEAN CORPUSCULAR HGB CONC 32.2 g/dl (32-36); PLATELET COUNT 384 K/uL (130-400); RED BLOOD COUNT 3.68 M/uL (4.2-5.4); WHITE BLOOD COUNT 6.27 K/uL (4.8-10.8)
[2016-06-25 12:53] LABS: INR 4.1 (0.9-1.1); PROTHROMBIN TIME (PATIENT) 46.9 SECONDS (9.0-12.0)
== END | disposition home or self-care (01) ==
LOC: C.LABPBG 07:48
PROVIDERS: ATTEND Internal Medicine
DX: I82.409 Acute embolism and thrombosis of unspecified deep veins of unspecified lower extremity (principal); D50.0 Iron deficiency anemia secondary to blood loss (chronic)

== ENCOUNTER → 2016-07-26 | Outpatient (CLI) | payer BC ==
[2016-07-26 12:32] LABS: BASO % 1.8 %; IG% 0.2 %; LYMPH % 26.6 %; LYMPH ABS # 1.49 K/uL (1.2-3.4); MEAN CELL VOLUME 85.4 fL (80-100); MEAN CORPUSCULAR HEMOGLOBIN 25.6 pg (25-34); MEAN PLATELET VOLUME 9.3 fL (7.4-10.4); MONO % 8.9 %; NEUT % 60.5 %; PLATELET COUNT 454 K/uL (130-400); RED BLOOD COUNT 3.28 M/uL (4.2-5.4); WHITE BLOOD COUNT 5.61 K/uL (4.8-10.8)
[2016-07-26 12:58] LABS: FERRITIN 13.3 ng/ml (8.0-388.0)
[2016-07-26 13:14] LABS: COMPLETE YES; HYPOCHROMIA PRESENT; POLYCHROMASIA 1+
== END | disposition home or self-care (01) ==
LOC: C.LABPBG 07:47
PROVIDERS: ATTEND Family Medicine
DX: N92.0 Excessive and frequent menstruation with regular cycle (principal); D50.0 Iron deficiency anemia secondary to blood loss (chronic)

== ENCOUNTER → 2016-08-03 | Outpatient (CLI) | payer BC ==
[2016-08-03 12:51] LABS: HEMATOCRIT 33.7 % (37-47)
== END | disposition home or self-care (01) ==
LOC: C.LABPBG 07:36
PROVIDERS: ATTEND Family Medicine
DX: D50.0 Iron deficiency anemia secondary to blood loss (chronic) (principal)

== ENCOUNTER → 2016-09-13 | Outpatient (CLI) | payer BC ==
--- NOTE | 2016-09-13 09:37 | DIAGNOSTIC IMAGING REPORT ---
ADDENDUM Addendum: The examination was compared with outside study from [facility] (formerly [facility] dated 06/14/2016. The peroneal thrombus was present that time, and is therefore likely chronic. The left common femoral vein thrombus was present that time it is felt to be chronic. There is been marked improvement/resolution of the superficial femoral vein and popliteal vein thrombus. IMPRESSION: Chronic changes. No acute thrombus identified. Electronically signed by: Madan Charles M.D. 09/28/2016 9:57 AM Dictated Date/Time: 09/28/2016 9:54 AM ORIGINAL REPORT LEFT LOWER EXTREMITY VENOUS DOPPLER HISTORY: I82.409 DVT of leg LEFT COMPARISON STUDY: None. FINDINGS: There is thrombus within the left posterior tibial veins. The peroneal veins are not well visualized. Anterior tibial veins appear patent. Small amount peripheral thrombus seen within the left common femoral vein. This is consistent with chronic thrombus. The left superficial femoral vein is small in caliber but patent. The left popliteal vein is patent. IMPRESSION: 1. Occlusive thrombus seen within the left peroneal veins which are likely acute on chronic. 2. Small amount of chronic thrombus within the left common femoral vein. Electronically signed by: Rashawn Obrien M.D. 09/13/2016 9:36 AM Dictated Date/Time: 09/13/2016 9:34 AM
== END | disposition home or self-care (01) ==
LOC: C.ULTRBC 08:46
PROVIDERS: ATTEND Family Medicine
DX: I82.409 Acute embolism and thrombosis of unspecified deep veins of unspecified lower extremity (principal); I82.512 Chronic embolism and thrombosis of left femoral vein

== ENCOUNTER → 2016-11-26 | Outpatient (CLI) | payer BC ==
[~2016-11-26] MED LIST changes: -ENOX80IN SQ; -MEDR5TAB PO; -WARF5TAB90 PO
[2016-12-01 19:38] LABS: B2 GLYCOPROTEIN IGA <9 SAU (<=20); B2 GLYCOPROTEIN IGG <9 SGU (<=20); B2 GLYCOPROTEIN IGM <9 SMU (<=20); DRVVT MIX INTERPRETAION Not Indicated; LAC PTT SCREEN 34 sec (<=40); LUPUS ANTICOAGULANT** TC36573X Negative (Negative); PHOSPHATIDYLSERINE IGA <20 U/mL (<20); PHOSPHATIDYLSERINE IGG 15 U/mL (<10); PHOSPHATIDYLSERINE IGM 27 U/mL (<25); PROTEIN C ACTIVITY** TC 1777X 82 % (70-180); PROTEIN S FREE 75 % normal (50-147); PROTEIN S TOTAL 94 % (70-140)
== END | disposition home or self-care (01) ==
LOC: C.LABBC 11:30
PROVIDERS: ATTEND Internal Medicine
DX: N93.9 Abnormal uterine and vaginal bleeding, unspecified (principal)

== ENCOUNTER → 2017-01-14 | Outpatient (CLI) | payer BC ==
[~2017-01-14] MED LIST changes: -FERR50TA3 PO
[2017-01-14 17:27] LABS: MEAN CELL VOLUME 82.8 fL (80-100); MEAN CORPUSCULAR HEMOGLOBIN 26.1 pg (25-34); MEAN CORPUSCULAR HGB CONC 31.5 g/dl (32-36); MEAN PLATELET VOLUME 10.3 fL (7.4-10.4); PLATELET COUNT 290 K/uL (130-400); RED BLOOD COUNT 4.71 M/uL (4.2-5.4); WHITE BLOOD COUNT 7.57 K/uL (4.8-10.8)
[2017-01-14 17:42] LABS: INR 0.9 (0.9-1.1); PROTHROMBIN TIME (PATIENT) 10.1 SECONDS (9.0-12.0)
== END | disposition home or self-care (01) ==
LOC: C.LAB1850 16:27
PROVIDERS: ATTEND Obstetrics & Gynecology
DX: Z01.812 Encounter for preprocedural laboratory examination (principal)

== ENCOUNTER → 2017-02-01 | Outpatient (CLI) | payer BC ==
[2017-02-01 12:14] LABS: BASO % 1.1 %; BASO ABS # 0.06 K/uL (0-0.2); COMPLETE YES; EOS % 0.7 %; HEMATOCRIT 38.5 % (37-47); IG% 0.2 %; MEAN CELL VOLUME 81.2 fL (80-100); MEAN CORPUSCULAR HEMOGLOBIN 25.5 pg (25-34); MEAN CORPUSCULAR HGB CONC 31.4 g/dl (32-36); MEAN PLATELET VOLUME 10.4 fL (7.4-10.4); MONO % 4.9 %; NEUT % 75.1 %; PLATELET COUNT 316 K/uL (130-400); RED BLOOD COUNT 4.74 M/uL (4.2-5.4); WHITE BLOOD COUNT 5.55 K/uL (4.8-10.8)
[2017-02-01 13:09] LABS: TOTAL IRON BINDING CAPACITY 469 mcg/dl (250-450)
[2017-02-01 13:11] LABS: BLOOD UREA NITROGEN 7 mg/dl (7-18); BUN/CREATININE RATIO 10.9 (10-20); CALCIUM 8.9 mg/dl (8.5-10.1); CARBON DIOXIDE 26 mmol/L (21-32); CHLORIDE 107 mmol/L (98-107); CREATININE 0.66 mg/dl (0.60-1.20); GLUCOSE 103 mg/dl (70-99); POTASSIUM 3.8 mmol/L (3.5-5.1); SODIUM 138 mmol/L (136-145)
== END | disposition home or self-care (01) ==
LOC: C.LABPBG 09:12
PROVIDERS: ATTEND Physician Assistant
DX: D50.9 Iron deficiency anemia, unspecified (principal)

== ENCOUNTER → 2017-02-07 | Day surgery (SDC) | payer BC ==
[2017-01-04 13:55] VITALS: Ht 165.1 cm; Wt 79.5 kg
--- NOTE | 2017-01-17 13:32 | HISTORY & PHYSICAL EXAMINATION ---
DATE OF ADMISSION: 02/07/2017 ADMITTING DIAGNOSES: 1. Menorrhagia. 2. Abnormal vaginal bleeding. ADMISSION HISTORY: The patient is a 51-year-old 2, para 2, last menstrual period of 13 December, who is admitted for diagnostic hysteroscopy, D&C with NovaSure endometrial ablation for menorrhagia. I initially met the patient in May of this year when she had acute menorrhagia after being anticoagulated for DVT. The patient's menorrhagia had been longstanding for several years. In February, she had a D&C and hysteroscopy done in [place]. Pathology from that showed endometrial polyps. In May of this year, she had a fracture and underwent orthopedic surgery. She developed a postoperative DVT and was placed on anticoagulation. After the anticoagulation, she began to hemorrhage. She was evaluated in the Emergency Room at [facility]. We attempted to control the bleeding hormonally with a progesterone taper, but her bleeding continued and she was admitted and had a transfusion. Over the next several months, her bleeding was managed or attempted to be managed with IUDs as well as progesterone tapers. She had had several episodes of heavy vaginal bleeding and in August was transferred to [facility] in anticipation of undergoing an emergency ablation or hysterectomy. At [place], she was transfused but her bleeding stabilized and the patient declined surgical intervention. In October, the patient was finally taken off anticoagulation and her bleeding had normalized. In November, the patient had a very heavy bleed with the passages of clots and is now requesting endometrial ablation. Off anticoagulation, the patient had a thrombophilia workup which was negative except for mild elevation of antiphospholipid antibody. The patient states that she was seen by hematology who did not feel the antiphospholipid antibody was of clinical significance. PAST MEDICAL HISTORY: OBSTETRIC: x2. GYNECOLOGIC: As above. MEDICAL: As above. SURGICAL: Appendectomy, repair of left foot fracture. SOCIAL HISTORY: No smoking. FAMILY HISTORY: Noncontributory. REVIEW OF SYSTEMS: As per HPI. ADMISSION PHYSICAL EXAMINATION: GENERAL: Shows a pleasant female in no acute distress. VITAL SIGNS: Blood pressure 126/80, height of 5 feet 4 inches and weight 176 pounds. HEENT EXAMINATION: Unremarkable. NECK: Supple. LUNGS: Clear. HEART: With a regular rhythm and rate. ABDOMEN: Soft, nontender, no palpable masses. No rebound, no guarding, no organomegaly. Positive bowel sounds. PELVIC: Shows normal external genitalia. Vaginal vault is pink and rugated. Cervical os multiparous and closed. Bimanual examination shows an anterior mobile uterus. The adnexa show no palpable masses. RECTAL: Confirmatory. EXTREMITIES: Exam shows no deep calf tenderness. NEUROLOGIC: Grossly intact. IMPRESSION: A 51-year-old G2, P2 for diagnostic hysteroscopy, D&C with endometrial ablation. PLAN: The risks, benefits and alternatives to the surgery have been discussed. While the benefits will be improvement in her menorrhagia or cessation of her menstrual cycles, the risks are bleeding, infection, inadvertent perforation of the uterus or failure to improve the bleeding. Failure rate quoted at 10-15%. The patient understands this. In addition, we have discussed the patient's history of a DVT. DVT was a result of postoperative immobilization and she has had a negative thrombophilia workup. Although the surgery will be of short duration, we are going to place TYRON stockings as well as pneumatic pressure stockings for the surgery. Because of the short length of surgery and her ability to ambulate shortly thereafter, anticoagulation is not indicated. The patient understands all of the above, permit has been signed, and she wishes to proceed.
[~2017-02-07] VITALS: Ht 165.1 cm; Wt 79.5 kg
[~2017-02-07] MED LIST changes: +ATROPINE SULFATE 0.1 MG/ML 5ML SYR IV PRN; +DEXAMETHASONE SOD INJ 4 MG/ML VIAL IV PRN; +DEXAMETHASONE SOD INJ 4 MG/ML VIAL ONE; +EpHEDrine SULFATE 50MG/5ML SYR ONE; +EpHEDrine SULFATE INJ 50 MG/ML AMP IV PRN; +FENTANYL CITRATE INJ 50 MCG/1 ML 2 ML VIAL IV PRN; +FENTANYL CITRATE INJ 50 MCG/1 ML 2 ML VIAL ONE; +HYDROCODONE/ACETAMOPHEN 5/325MG TAB PO PRN; +IBUPROFEN 600 MG TAB PO PRN; +KETOROLAC TROMETHAMINE 30 MG/ML VIAL IV. PRN; +KETOROLAC TROMETHAMINE 30 MG/ML VIAL ONE; +LABETALOL HCL IV 5 MG/ML 20ML IV PRN; +LACTATED RINGER'S 1000ML 1,000 ML IV SCH; +LIDOCAINE HCL 2% 2 ML VIAL (20MG/ML) ONE; +METOCLOPRAMIDE HCL INJ 5 MG/ML 2 ML VIAL IV PRN; +MIDAZOLAM HCL 1 MG/ML 2ML VIAL ONE; +MoRPHine SULFATE 10 MG/ML CARP/VIAL IV PRN; +ONDANSETRON INJ 2 MG/ML 2 ML VIAL IV PRN; +ONDANSETRON INJ 2 MG/ML 2 ML VIAL ONE; +PHENYLEPHRINE 100MCG/ML 5ML SYR IV PRN; +PROPOFOL IV EMULSION 10 MG/ML 20 ML VIAL IV ONE; +SODIUM CHLORIDE 0.9% 1000ML 1,000 ML IV SCH
--- NOTE | 2017-02-07 07:02 | History & Physical Bridge - SC ---
H&P Re-Evaluation Bridge Note: I have examined the patient, reviewed the History & Physical and in the interval since the performance of the History & Physical I have noted the following changes of clinical significance: No changes noted
--- NOTE | 2017-02-07 07:41 | [facility] Post Operative Brief Note ---
Immediate Operative Summary Operative Date Feb 07, 2017. Pre-Operative Diagnosis Menorrhagia, Abnormal Vaginal Bleeding Post-Operative Diagnosis Same Procedure(s) Performed 1) Diagnostic hysteroscopy 2) D&C 3) Novasure endometrial ablation Surgeon Dr. Lalitha Vivas Tow Picker Surgeon(s) None Estimated Blood Loss Minimal Findings Uterus sounded to 8 cm, both ostia visualized, patchy endometrial tissue. Cervix length of 3.5 cm. Curettage of endometrial lining sent for pathological evaluation. NovaSure instrument inserted and array deployed to 4.5 cm. Endometrial ablation for 1 min 40 sec, use 111 domingo. Repeat hysteroscopy showed ablated endometrium. Fluid deficit 45 cc. Fluids (cc crystalloids) 600 Specimens A. Endometrial Currettings Drains None Anesthesia General Complication(s) None Disposition Recovery Room / PACU
--- NOTE | 2017-02-07 07:47 | Discharge Instructions-SurgCtr ---
Discharge Instructions Date of Service Feb 07, 2017. Visit Reason for Visit: Menorrhagia, Abnormal Vaginal Bleeding Discharge Discharge Diagnosis / Problem: same Discharge Goals Goal(s): Therapeutic intervention Activity Recommendations Activity Limitations: as noted below Anesthesia . Post Anesthesia Instructions: If you have had General Anesthesia or IV Sedation: * Do not drive today. * Resume driving when surgeon permits. * Do not make important decisions or sign legal documents today. * Call surgeon for: 1. Temperature elevations greater than 101 degrees F. 2. Uncontrollable pain. 3. Excessive bleeding. 4. Persistent nausea and vomiting. 5. Medication intolerance (nausea, vomiting or rash). * For nausea and vomiting use only clear liquids such as: tea, soda, bouillon until nausea subsides, then gradually increase diet as tolerated. * If you have any concerns or questions, call your surgeon's office. If physician is unavailable and it is an emergency, call 911 or go to the nearest emergency room. . Instructions / Follow-Up Instructions / Follow-Up ACTIVITY RECOMMENDATIONS: * Avoid tampons, douching, hot tubs, pools, and intercourse until bleeding has stopped. * May shower as usual. * No strenuous activity for 24-48 hours. After 24-48 hours, you may do anything you feel like doing (driving and sports are okay). SPECIAL CARE INSTRUCTIONS: Special Diet: * Mild nausea may occur in the immediate post-operative period. * Take clear liquids such as tea, cola or bouillon until all nausea has subsided; you may then resume your normal diet. Special Care: * Light bleeding and vaginal spotting can last from a few days to 3-4 weeks. Call your doctor if bleeding becomes heavier than the heaviest part of your period. * Check your temperature twice a day for one week. If it goes above 100.4 degrees Fahrenheit (38.0 Celsius), notify your doctor. * Call your doctor's office for an appointment for 6 weeks after your surgery. FOLLOW-UP VISIT: Call your doctor's office for an appointment for 6 weeks after your surgery. Diet Recommendations Home Diet: resume previous diet Procedures Procedures Performed: 1) Diagnostic hysteroscopy 2) D&C 3) Novasure endometrial ablation Pending Studies Studies pending at discharge: yes List of pending studies: Pathology Medical Emergencies . Who to Call and When: Medical Emergencies: If at any time you feel your situation is an emergency, please call 911 immediately. . Non-Emergent Contact Non-Emergency issues call your: Journeyman Operator Assistant Call Non-Emergent contact if: temperature is above 100.5, your pain is not controlled . . "Provider Documentation" section prepared by Adebayo Vivas. .
--- NOTE | 2017-02-07 08:15 | OPERATIVE REPORT ---
DATE OF OPERATION: 02/07/2017 PREOPERATIVE DIAGNOSES: 1. Menorrhagia. 2. Dysfunctional uterine bleeding. POSTOPERATIVE DIAGNOSES: Same. PROCEDURE PERFORMED: 1. Diagnostic hysteroscopy. 2. D&C. 3. NovaSure endometrial ablation. SURGEON: Dr. Vivas. ANESTHESIA: General. FINDINGS: Hysteroscopic examination of the uterus showed patchy endometrial tissue. Uterus sounded to 8 cm. Both ostia visualized. Cervical length measured at 3.5 cm with the functional length of 4.5 cm. D&C performed. NovaSure endometrial ablation performed with the array deployed to 4.5 cm. Endometrial ablation performed for 1 minute and 40 seconds using 111 domingo of power. Post-procedure hysteroscopy showed ablated endometrium. Fluid deficit for the procedure 45 mL. PROCEDURE IN DETAIL: The patient was taken to the operating room, and after general anesthesia, was placed in dorsolithotomy position and draped and prepped in usual fashion. Bladder was drained of any residual urine. Single tooth tenaculum was used to grasp the anterior lip of the cervix. Uterus was sounded to a depth of 8 cm and then the cervical os was dilated with Amaro dilators to a Amaro #25. Operative hysteroscope was inserted into the endometrial cavity with the description as above. Cervical length measured at 3.5 cm. Medium curette was introduced into the uterine cavity and all 4 quadrants were curettaged and sent for pathological evaluation. The NovaSure instrument was then inserted into the endometrial cavity and the array was deployed to a width of 4.5 cm. Cavity integrity check was passed and NovaSure endometrial ablation was then performed for a total of 1 minute 40 seconds using 111 domingo of power. NovaSure was removed. Repeat hysteroscopy showed an ablated endometrium. Fluid deficit for the procedure was 45 mL. Hysteroscope was removed. The patient was taken out of dorsal lithotomy and to recovery room in satisfactory condition. I attest to the content of the Intraoperative Record and any orders documented therein. Any exception s are noted below.
--- NOTE | 2017-02-07 08:16 | Anesthesia Progress Nt - [facility] ---
Anesthesia Post Op Note Date & Time Feb 07, 2017 at 08:16 Vital Signs Pain Intensity: 1 Vital Signs Past 12 Hours Date Time Temp Pulse Resp B/P (MAP) Pulse Ox O2 Delivery O2 Flow Rate FiO2 02/07/17 08:11 81 15 02/07/17 08:11 81 15 96 02/07/17 08:10 36.7 76 16 115/61 97 Room Air 02/07/17 08:10 115/61 02/07/17 08:06 80 18 97 02/07/17 08:06 82 18 02/07/17 08:05 112/52 02/07/17 08:01 82 17 100 02/07/17 08:01 83 17 02/07/17 08:00 114/68 02/07/17 07:56 83 15 100 02/07/17 07:56 82 15 02/07/17 07:55 111/68 02/07/17 07:53 109/72 02/07/17 07:51 84 17 100 02/07/17 07:51 84 17 02/07/17 07:50 109/72 02/07/17 07:46 82 13 111/67 99 02/07/17 07:46 82 13 02/07/17 07:46 36.6 84 14 111/67 99 Mask 6 02/07/17 06:36 36.5 93 16 131/83 (99) 99 Room Air Notes Mental Status: alert / awake / arousable, participated in evaluation Pt Amnestic to Procedure: Yes Nausea / Vomiting: adequately controlled Pain: adequately controlled Airway Patency, RR, SpO2: stable & adequate BP & HR: stable & adequate Hydration State: stable & adequate Anesthetic Complications: no major complications apparent
[2017-02-07 08:41] VITALS: BP 102/67; PULSE 60; TEMP 36.5; O2SAT 97
== END | disposition home or self-care (01) ==
LOC: X.SURG 06:25
PROVIDERS: ATTEND Obstetrics & Gynecology
DX: N93.8 Other specified abnormal uterine and vaginal bleeding (principal); Z86.718 Personal history of other venous thrombosis and embolism

== ENCOUNTER → 2017-04-22 | Outpatient (CLI) | payer BC ==
[~2017-04-22] MED LIST changes: -ATROPINE SULFATE 0.1 MG/ML 5ML SYR IV PRN; -DEXAMETHASONE SOD INJ 4 MG/ML VIAL IV PRN; -DEXAMETHASONE SOD INJ 4 MG/ML VIAL ONE; -EpHEDrine SULFATE 50MG/5ML SYR ONE; -EpHEDrine SULFATE INJ 50 MG/ML AMP IV PRN; -FENTANYL CITRATE INJ 50 MCG/1 ML 2 ML VIAL IV PRN; -FENTANYL CITRATE INJ 50 MCG/1 ML 2 ML VIAL ONE; -HYDROCODONE/ACETAMOPHEN 5/325MG TAB PO PRN; -IBUPROFEN 600 MG TAB PO PRN; -KETOROLAC TROMETHAMINE 30 MG/ML VIAL IV. PRN; -KETOROLAC TROMETHAMINE 30 MG/ML VIAL ONE; -LABETALOL HCL IV 5 MG/ML 20ML IV PRN; -LACTATED RINGER'S 1000ML 1,000 ML IV SCH; -LIDOCAINE HCL 2% 2 ML VIAL (20MG/ML) ONE; -METOCLOPRAMIDE HCL INJ 5 MG/ML 2 ML VIAL IV PRN; -MIDAZOLAM HCL 1 MG/ML 2ML VIAL ONE; -MoRPHine SULFATE 10 MG/ML CARP/VIAL IV PRN; -ONDANSETRON INJ 2 MG/ML 2 ML VIAL IV PRN; -ONDANSETRON INJ 2 MG/ML 2 ML VIAL ONE; -PHENYLEPHRINE 100MCG/ML 5ML SYR IV PRN; -PROPOFOL IV EMULSION 10 MG/ML 20 ML VIAL IV ONE; -SODIUM CHLORIDE 0.9% 1000ML 1,000 ML IV SCH
[2017-04-22 17:05] LABS: BASO % 1.1 %; BASO ABS # 0.07 K/uL (0-0.2); EOS % 2.4 %; EOS ABS # 0.15 K/uL (0-0.5); HEMOGLOBIN 14.2 g/dL (12.0-16.0); LYMPH % 30.5 %; LYMPH ABS # 1.94 K/uL (1.2-3.4); MEAN CELL VOLUME 85.9 fL (80-100); MEAN CORPUSCULAR HEMOGLOBIN 27.7 pg (25-34); MEAN CORPUSCULAR HGB CONC 32.3 g/dl (32-36); MEAN PLATELET VOLUME 10.8 fL (7.4-10.4); MONO % 6.9 %; MONO ABS # 0.44 K/uL (0.11-0.59); NEUT % 59.1 %; NEUT ABS # 3.77 K/uL (1.4-6.5); PLATELET COUNT 241 K/uL (130-400); RED CELL DISTRIBUTION WIDTH CV 18.4 % (11.5-14.5); RED CELL DISTRIBUTION WIDTH SD 58.4 fL (36.4-46.3); WHITE BLOOD COUNT 6.37 K/uL (4.8-10.8)
[2017-04-22 17:17] LABS: TRANSFERRIN 307 mg/dl (200-360)
== END | disposition home or self-care (01) ==
LOC: C.LABPBG 12:50
PROVIDERS: ATTEND Internal Medicine
DX: D50.9 Iron deficiency anemia, unspecified (principal)

== ENCOUNTER → 2017-05-25 | Outpatient (CLI) | payer BC ==
--- NOTE | 2017-05-25 15:22 | MAMMOGRAPHY REPORT ---
BILATERAL DIGITAL SCREENING MAMMOGRAM TOMOSYNTHESIS WITH CAD: 05/25/2017 CLINICAL HISTORY: Routine screening. Patient has no complaints. TECHNIQUE: Breast tomosynthesis in addition to standard 2D mammography was performed. Current study was also evaluated with a Computer Aided Detection (CAD) system. COMPARISON: Comparison is made to exams dated: 05/14/2013 mammogram, 12/15/2011 mammogram, 07/07/2010 m ammogram, and 12/14/2007 mammogram. BREAST COMPOSITION: There are scattered areas of fibroglandular density in both breasts. FINDINGS: No suspicious masses, calcifications, or areas of architectural distortion are noted in ei ther breast. There has been no significant interval change compared to prior exams. IMPRESSION: ACR BI-RADS CATEGORY 1: NEGATIVE There is no mammographic evidence of malignancy. A 1 year screening mammogram is recommended. The pa tient will receive written notification of the results. Approximately 10% of breast cancers are not detected with mammography. A negative mammographic report should not delay biopsy if a clinically suggestive mass is present. Awilda Gates M.D. ah/:05/25/2017 08:52:36 Warehouse Operations Manager: Kalyani RUIZ(R)(M), [facility] letter sent: Normal 1/2 BI-RADS Code: ACR BI-RADS Category 1: Negative
== END | disposition home or self-care (01) ==
LOC: C.MAMM 08:13
PROVIDERS: ATTEND Obstetrics & Gynecology
DX: Z12.31 Encounter for screening mammogram for malignant neoplasm of breast (principal)

== ENCOUNTER → 2017-05-31 | Outpatient (CLI) | payer BC ==
[2017-05-31 12:58] LABS: BASO % 1.6 %; BASO ABS # 0.09 K/uL (0-0.2); EOS % 1.6 %; EOS ABS # 0.09 K/uL (0-0.5); HEMATOCRIT 40.4 % (37-47); HEMOGLOBIN 13.2 g/dL (12.0-16.0); IG# 0.01 K/uL (0.00-0.02); LYMPH % 28.8 %; LYMPH ABS # 1.64 K/uL (1.2-3.4); MEAN CELL VOLUME 90.4 fL (80-100); MEAN CORPUSCULAR HEMOGLOBIN 29.5 pg (25-34); MEAN CORPUSCULAR HGB CONC 32.7 g/dl (32-36); MEAN PLATELET VOLUME 11.3 fL (7.4-10.4); MONO ABS # 0.34 K/uL (0.11-0.59); NEUT % 61.8 %; NEUT ABS # 3.52 K/uL (1.4-6.5); PLATELET COUNT 273 K/uL (130-400); RED CELL DISTRIBUTION WIDTH CV 15.4 % (11.5-14.5); RED CELL DISTRIBUTION WIDTH SD 50.8 fL (36.4-46.3); WHITE BLOOD COUNT 5.69 K/uL (4.8-10.8)
== END | disposition home or self-care (01) ==
LOC: C.LABPBG 07:51
PROVIDERS: ATTEND Physician Assistant
DX: R53.83 Other fatigue (principal); Z13.21 Encounter for screening for nutritional disorder; D64.9 Anemia, unspecified; N92.0 Excessive and frequent menstruation with regular cycle; R68.89 Other general symptoms and signs